=== PATIENT | female | born 1960 | race Caucasian/White ===

== ENCOUNTER 2018-09-09 02:44 | Emergency (ER) | payer OTHER ==
[2018-09-09] MEDS ORDERED: KETOROLAC 15 MG/1 ML SDV IVP ONE (03:23)
[2018-09-09] MEDS ORDERED: ONDANSETRON 4 MG/2 ML VIAL IVP ONE (03:23)
[2018-09-09] MEDS ORDERED: NS 1,000 ML IV ONE (03:23)
[2018-09-09 03:28] LABS: PLATELET COUNT 324 10^3/uL (150-400)
[2018-09-09] MEDS ORDERED: IOPAMIDOL (ISOVUE-300) 100 ML BTL ONE (03:41)
--- NOTE | 2018-09-09 04:44 | EDPHY ---
H & P Stated Complaint: ABD PAIN PAST FEW DAYS. BILAT LOW QUADS Time Seen by Provider: 09/09/18 02:55 HPI/ROS: HPI The patient presents with abdominal pain present for the last several days, progressively worse and most severe tonight, prevented her from sleeping. The patient says that since January she has had intermittent bouts of lower abdominal pain which feels crampy in nature. She has had occasional diarrhea with this. She has not had any dark or bloody stools. She has had nausea but not vomiting. The pain is somewhat related to meals. She has lost her appetite over the last several days and states that she believes she has lost about 5 lb. She is currently being followed by a functional medicine doctor. She had testing done in June including stool studies which were positive for Campylobacter, she was told that she has a chronic Campylobacter infection. She had basic lab testing that was unremarkable. She has not had a colonoscopy. REVIEW OF SYSTEMS 10 systems were reviewed and negative with the exception of the elements mentioned in the history of present illness. PMHx: Healthy, postmenopausal Soc Hx: Housed with her , exercises regularly FHx: No family history of IBD or colorectal cancer PHYSICAL General Appearance: Alert, no distress Eyes: Pupils equal and round no pallor or injection ENT, Mouth: Mucous membranes moist Respiratory: There are no retractions, lungs are clear to auscultation Cardiovascular: Regular rate and rhythm Gastrointestinal: Abdomen is distended, bowel sounds present, tender in right lower and left lower quadrants Neurological: A&O, moves all extremities Skin: Warm and dry, no rashes Musculoskeletal: Neck is supple non tender Extremities: symmetrical, full range of motion Psychiatric: Patient is oriented X 3, there is no agitation Source: Patient Exam Limitations: No limitations - Personal History Current Tetanus/Diphtheria Vaccine: Yes Current Tetanus Diphtheria and Acellular Pertussis (TDAP): Yes - Medical/Surgical History Hx Asthma: No Hx Chronic Respiratory Disease: No Hx Diabetes: No Hx Cardiac Disease: No Hx Renal Disease: No Hx Cirrhosis: No Hx Alcoholism: No Hx HIV/AIDS: No Hx Splenectomy or Spleen Trauma: No Other PMH: CHRONIC CAMPYLOBACTER INFECTION. - Social History Smoking Status: Never smoked Constitutional: Initial Vital Signs Temperature (C) 36.8 C 09/09/18 02:46 Heart Rate 81 09/09/18 02:46 Respiratory Rate 18 09/09/18 02:46 Blood Pressure 128/97 H 09/09/18 02:46 O2 Sat (%) 98 09/09/18 02:46 O2 Delivery Mode Room Air Allergies/Adverse Reactions: No Known Allergies Allergy (Unverified 09/09/18 02:49) Home Medications: Medication Instructions Recorded Suppliments 09/09/18 Medical Decision Making - Diagnostics Imaging Results: CT abdomen pelvis with IV contrast demonstrates an obstructing mass in the distal descending colon, measuring about 2 x 2 x 2 cm, consider neoplasm. Very large volume of retained stool within the ascending, transverse, and descending colon. Small amount of free fluid in the pelvis. This was discussed with Dr. Pascal of [facility]. Imaging: Discussed imaging studies w/ call center supervisor Radiologist Differential Diagnosis: This is a 58-year-old female who is healthy who presents with about 8 months of intermittent crampy lower abdominal pain associated with nausea. Pain has become more severe over the last 2 days and is keeping her up at night now. On exam, she appears mildly dehydrated, vital signs are unremarkable, she is tender in her lower quadrants. Differential diagnosis includes colitis, diverticulitis, appendicitis, malignancy. In the emergency department, patient received IV fluids, Toradol, Zofran with some improvement. Labs were checked and were unremarkable. CT scan demonstrated obstructing mass in the distal descending colon, consider neoplasm. I explained this finding to her and that I was concerned that it could be a malignancy. Given the severity of her symptoms, she should be admitted to the hospital. Her is an employee of [employer] and because of his specific insurance plan she is subject to high deductible if she is admitted to hospital outside of this network. She requests transfer to [facility]. I consulted with the hospitalist at [facility] Dr. Garcia. He accepts the patient for transfer to inpatient bed. The patient was offered BLS transport, however prefers to drive there with her . She will be transferred from the emergency department. - Data Points Laboratory Results: Laboratory Results 09/09/18 03:08 09/09/18 03:08 09/09/18 09/09/18 03:08 03:08 WBC 6.27 10^3/uL 10^3/uL (3.80-9.50) RBC 5.22 10^6/uL 10^6/uL (4.18-5.33) Hgb 15.3 g/dL g/dL (12.6-16.3) Hct 44.8 % % (38.0-47.0) MCV 85.8 fL fL (81.5-99.8) MCH 29.3 pg pg (27.9-34.1) MCHC 34.2 g/dL g/dL (32.4-36.7) RDW 12.5 % % (11.5-15.2) Plt Count 324 10^3/uL 10^3/uL (150-400) MPV 9.9 fL fL (8.7-11.7) Neut % (Auto) 53.1 % % (39.3-74.2) Lymph % (Auto) 30.3 % % (15.0-45.0) Bay % (Auto) 7.8 % % (4.5-13.0) Eos % (Auto) 7.8 % H % (0.6-7.6) Baso % (Auto) 0.8 % % (0.3-1.7) Nucleat RBC Rel Count 0.0 % % (0.0-0.2) Absolute Neuts (auto) 3.33 10^3/uL 10^3/uL (1.70-6.50) Absolute Lymphs (auto) 1.90 10^3/uL 10^3/uL (1.00-3.00) Absolute Monos (auto) 0.49 10^3/uL 10^3/uL (0.30-0.80) Absolute Eos (auto) 0.49 10^3/uL H 10^3/uL (0.03-0.40) Absolute Basos (auto) 0.05 10^3/uL 10^3/uL (0.02-0.10) Absolute Nucleated RBC 0.00 10^3/uL 10^3/uL (0-0.01) Immature Gran % 0.2 % % (0.0-1.1) Immature Gran # 0.01 10^3/uL 10^3/uL (0.00-0.10) Sodium 137 mEq/L mEq/L (135-145) Potassium 4.0 mEq/L mEq/L (3.5-5.2) Chloride 105 mEq/L mEq/L (97-110) Carbon Dioxide 21 mEq/l L mEq/l (22-31) Anion Gap 11 mEq/L mEq/L (6-14) BUN 14 mg/dL mg/dL (7-23) Creatinine 0.8 mg/dL mg/dL (0.6-1.0) Estimated GFR > 60 Glucose 88 mg/dL mg/dL (70-100) Calcium 9.6 mg/dL mg/dL (8.5-10.4) Total Bilirubin 0.6 mg/dL mg/dL (0.1-1.4) AST 28 IU/L IU/L (14-46) ALT 21 IU/L IU/L (9-52) Alkaline Phosphatase 49 IU/L IU/L (38-126) Total Protein 7.3 g/dL g/dL (6.3-8.2) Albumin 4.4 g/dL g/dL (3.5-5.0) Lipase 117 IU/L IU/L (23-300) Medications Given: Discontinued Medications Sodium Chloride (Ns) 1,000 mls @ 0 mls/hr IV EDNOW ONE; Wide Open PRN Reason: Protocol Stop: 09/09/18 03:24 Last Admin: 09/09/18 03:25 Dose: 1,000 mls Ketorolac Tromethamine (Toradol) 15 mg IVP EDNOW ONE Stop: 09/09/18 03:24 Last Admin: 09/09/18 03:27 Dose: 15 mg Ondansetron HCl (Zofran) 4 mg IVP EDNOW ONE Stop: 09/09/18 03:24 Last Admin: 09/09/18 03:27 Dose: 4 mg Departure - Departure Disposition: Acute Care Hospital Not [facility] Clinical Impression: Mass of colon Constipation Qualifiers: Constipation type: unspecified constipation type Qualified Code(s): K59.00 - Constipation, unspecified Abdominal pain Qualifiers: Abdominal location: lower abdomen, unspecified Qualified Code(s): R10.30 - Lower abdominal pain, unspecified Condition: Fair Referrals: NONE *PRIMARY CARE P,. [Primary Care Provider] - As per Instructions
[2018-09-09 05:08] VITALS: BP 124/77
== END 2018-09-09 06:00 | disposition short-term general hospital (02) ==
DX: K63.89 Other specified diseases of intestine (principal); K59.00 Constipation, unspecified; E86.9 Volume depletion, unspecified
CPT/HCPCS: 96374; J1885; J2405; Q9967